=== PATIENT | male | born 1980 | race Hispanic/Latino ===

== ENCOUNTER 2024-04-24 23:21 | Emergency (ER) | payer SELFPAY ==
[~2024-04-24] VITALS: Ht 170.2 cm; Wt 77.1 kg
[2024-04-25] MEDS: SODIUM CHLORIDE 0.9% 1000ML 1,000 ML IV STA (00:03)
[2024-04-25 00:06] LABS: AMPHETAMINES SCREEN,URINE NEGATIVE (NEGATIVE); BENZODIAZEPINES SCREEN,URINE NEGATIVE (NEGATIVE); CANNABINOIDS SCREEN,URINE POSITIVE (NEGATIVE); METHADONE SCREEN, URINE NEGATIVE (NEGATIVE); OPIATES SCREEN,URINE NEGATIVE (NEGATIVE); PHENCYCLIDINE SCREEN,URINE NEGATIVE (NEGATIVE)
[2024-04-25 01:00] LABS: CREATININE, SERUM 1.15 mg/dL (0.72-1.25)
[2024-04-25 01:02] LABS: CALCIUM 10.3 mg/dL (8.4-10.2)
[2024-04-25 02:14] LABS: ANION GAP 22.5 mmol/L (8-16); CALCIUM 9.9 mg/dL (8.4-10.2); CREATININE, SERUM 1.01 mg/dL (0.72-1.25); POTASSIUM 4.5 mmol/L (3.5-5.1)
[2024-04-25 02:56] LABS: BASOPHILS % 0.5 % (0.0-1.0); EOSINOPHILS % 0.6 % (0.0-6.0); HEMATOCRIT 44.7 % (38.2-49.6); HEMOGLOBIN 15.5 g/dL (14.0-18.0); LYMPHOCYTES # (AUTO) 1.3 (1.0-3.2); LYMPHOCYTES % 20.5 % (18.0-39.1); MEAN CORPUSCULAR HEMOGLOBIN 29.3 pg (28-32); MEAN CORPUSCULAR HGB CONC 34.7 g/dL (31-35); MEAN CORPUSCULAR VOLUME 84.5 fL (81-99); MONOCYTES # (AUTO) 0.4 (0.2-0.8); MONOCYTES % 6.6 % (4.4-11.3); NEUTROPHILS # (AUTO) 4.7 (2.1-6.9); NEUTROPHILS % 71.3 % (38.7-80.0); PLATELET COUNT 134 x10e3/uL (140-360); RED BLOOD COUNT 5.29 x10e6/uL (4.3-5.7); RED CELL DISTRIBUTION WIDTH 13.3 % (11.7-14.4); WHITE BLOOD COUNT 6.54 x10e3/uL (4.8-10.8)
[2024-04-25 03:11] LABS: ALBUMIN 4.3 g/dL (3.5-5.0); ALKALINE PHOSPHATASE 108 IU/L (40-150); BILIRUBIN,TOTAL 0.4 mg/dL (0.2-1.2); TOTAL PROTEIN 11.6 g/dL (6.5-8.1)
[2024-04-25 03:56] VITALS: PULSE 89; RESP 16; TEMP 98.7; O2SAT 99
[2024-04-25 04:44] LABS: ALANINE AMINOTRANSFERASE 80 IU/L (0-55)
[2024-04-25 09:24] LABS: BASOPHILS % (MANUAL) 1 % (0-1.5); LYMPHOCYTES % (MANUAL) 20 % (19-48); MONOCYTES % (MANUAL) 6 % (3.4-9.0); NEUTROPHILS % (MANUAL) 73 % (40-74); PLATELET ESTIMATE SLIGHTLY DECREASED; PLATELET MORPHOLOGY COMMENT NORMAL
[2024-04-25 09:25] LABS: RBC MORPHOLOGY COMMENT NORMAL
== END 2024-04-25 04:03 | disposition home or self-care (01) ==
LOC: ER 23:28
DX: R44.0 Auditory hallucinations (principal); R44.1 Visual hallucinations; T40.995A Adverse effect of other psychodysleptics [hallucinogens], initial encounter; Y92.89 Other specified places as the place of occurrence of the external cause; F17.210 Nicotine dependence, cigarettes, uncomplicated
CPT/HCPCS: 36415; 80048; 80076; 80307; 80329; 85025; 93005; 99284; J7030

== ENCOUNTER 2024-06-29 05:59 | Inpatient (IN) | payer OTHER ==
[2024-06-29] VITALS (9 sets, daily range): BP systolic 140–164; BP diastolic 99–101; PULSE 74–119; RESP 16–20; TEMP 98.2–99.5; O2SAT 97–100
[~2024-06-29] VITALS: Ht 167.6 cm; Wt 72.6 kg
[2024-06-29] MEDS: SODIUM CHLORIDE 0.9% 1000ML 1,000 ML IV ONE (06:18)
[2024-06-29] MEDS: ONDANSETRON HCL INJ 2MG/ML 2ML 2 MG/ML VIAL IV STA (06:41)
[2024-06-29 06:42] LABS: ALBUMIN 4.7 g/dL (3.5-5.0); ALBUMIN/GLOBULIN RATIO 0.5 (0.8-2.0); BILIRUBIN,TOTAL 0.8 mg/dL (0.2-1.2); CALCIUM 10.4 mg/dL (8.4-10.2); CREATININE, SERUM 0.84 mg/dL (0.72-1.25); POTASSIUM 3.6 mmol/L (3.5-5.1); TOTAL PROTEIN 13.8 g/dL (6.5-8.1)
[2024-06-29] MEDS: Morphine 4mg INJECTION 4 MG/ML INJ IV ONE ×2 (06:42→09:53)
[2024-06-29 07:31] LABS: ANION GAP 17.6 mmol/L (8-16)
[2024-06-29 07:58] LABS: BILIRUBIN,URINE SMALL (NEGATIVE); CLARITY,URINE CLOUDY (CLEAR); COLOR,URINE YELLOW (YELLOW); GLUCOSE, URINE 500 (NEGATIVE); KETONES,URINE 2+ (NEGATIVE); LEUKOCYTE ESTERASE ,URINE NEGATIVE (NEGATIVE); NITRITE,URINE NEGATIVE (NEGATIVE); PH,URINE 5.5 (5 - 7); PROTEIN,URINE DIPSTICK 2+ (NEGATIVE); URINE UROBILINOGEN 0.2 mg/dL (0.2 - 1)
[2024-06-29 08:02] LABS: BASOPHILS # (AUTO) 0.1 (0.0-0.1); BASOPHILS % 0.5 % (0.0-1.0); EOSINOPHILS # (AUTO) 0.1 (0.0-0.4); EOSINOPHILS % 0.7 % (0.0-6.0); LYMPHOCYTES # (AUTO) 1.8 (1.0-3.2); LYMPHOCYTES % 16.3 % (18.0-39.1); MEAN CORPUSCULAR HEMOGLOBIN 29.3 pg (28-32); MEAN CORPUSCULAR HGB CONC 34.1 g/dL (31-35); MEAN CORPUSCULAR VOLUME 85.9 fL (81-99); MONOCYTES # (AUTO) 0.6 (0.2-0.8); MONOCYTES % 5.6 % (4.4-11.3); NEUTROPHILS # (AUTO) 8.3 (2.1-6.9); NEUTROPHILS % 76.5 % (38.7-80.0); RED BLOOD COUNT 5.94 x10e6/uL (4.3-5.7); RED CELL DISTRIBUTION WIDTH 12.9 % (11.7-14.4); WHITE BLOOD COUNT 10.88 x10e3/uL (4.8-10.8)
[2024-06-29 08:03] LABS: PLATELET COUNT 198 x10e3/uL (140-360)
[2024-06-29 08:07] LABS: HEMOGLOBIN 17.4 g/dL (14.0-18.0)
[2024-06-29 08:12] LABS: BACTERIA,URINE FEW /HPF; EPITHELIAL CELLS,URINE FEW /LPF; RBC,URINE 0-5 /HPF (0-5); WBC,URINE (MAN) 0-5 /HPF (0-5)
[2024-06-29] MEDS: ONDANSETRON HCL INJ 2MG/ML 2ML 2 MG/ML VIAL IV ONE (09:53)
[2024-06-29] MEDS: SODIUM CHLORIDE 0.9% 1000ML 1,000 ML IV SCH (09:53)
[2024-06-29] MEDS ORDERED: BENZONATATE 100 MG CAP PO PRN (11:00)
[2024-06-29] MEDS ORDERED: MELATONIN 5 MG TABLET PO PRN (11:00)
[2024-06-29] MEDS ORDERED: DEXTROSE 50% SYRINGE 50 ML IV PRN ×4 (11:00→23:30)
[2024-06-29] MEDS ORDERED: DIPHENHYDRAMINE HCL 25 MG CAP PO PRN (11:00)
[2024-06-29] MEDS ORDERED: SIMETHICONE 80 MG CHEW PO PRN (11:00)
[2024-06-29] MEDS ORDERED: DOCUSATE SODIUM 100 MG CAP PO PRN (11:00)
[2024-06-29] MEDS: LACTATED RINGER'S 1,000 ML INJ SCH (12:21)
[2024-06-29] MEDS ORDERED: IOPAMIDOL 370 MG/ML 100 ML INFUS..BTL INJ ONE (13:31)
[2024-06-29] MEDS: ACETAMINOPHEN 325 MG TAB PO PRN (13:46)
[2024-06-29] MEDS: HYDRALAZINE HCL 20 MG/ML VIAL IV PRN (13:47)
[2024-06-29] MEDS: ENOXAPARIN SOD INJ 40 MG/0.4 ML SYR SC SCH (16:45)
[2024-06-29 18:33] LABS: ANION GAP 22.7 mmol/L (8-16); CREATININE, SERUM 0.75 mg/dL (0.72-1.25); POTASSIUM 3.7 mmol/L (3.5-5.1)
[2024-06-29 18:45] LABS: CHOL/HDL RATIO 43.2 (3.9-4.7); CHOLESTEROL 475 MD/DL (0-199); HDL CHOLESTEROL 11 MG/DL (40-60)
[2024-06-29] MEDS: ONDANSETRON HCL INJ 2MG/ML 2ML 2 MG/ML VIAL IV PRN (18:58)
[2024-06-29] MEDS: Morphine 4mg INJECTION 4 MG/ML INJ IV PRN (18:58)
[2024-06-29 18:59] LABS: TRIGLYCERIDES 2591 MG/DL (0-149)
[2024-06-29] MEDS: INSULIN LISPRO 100 UNIT/1 ML 3ML VIAL SQ SCH (22:21)
[2024-06-29] MEDS: SODIUM BICARBONATE 8.4% 50 ML VIAL IV STA ×2 (23:08)
[2024-06-29] MEDS ORDERED: INSULIN REGULAR, HUMAN 100 UNIT/1 ML ONE (23:53)
[2024-06-29] MEDS: DEXTROSE 5%/LACTATED RINGERS 1,000 ML IV SCH (23:53)
[2024-06-30] VITALS (44 sets, daily range): BP systolic 127–166; BP diastolic 82–111; PULSE 88–153; RESP 5–20; TEMP 98.6–99.3; O2SAT 92–100
[2024-06-30] MEDS: SODIUM BICARBONATE 8.4% SYRING 100 ML ONE (00:02)
[2024-06-30] MEDS: INSULIN REGULAR, HUMAN 3ML VL 100 UNIT in SODIUM CHLORIDE 0.45% 100 ML 100 ML IV SCH (00:17)
[2024-06-30 00:25] LABS: AMPHETAMINES SCREEN,URINE NEGATIVE (NEGATIVE); BENZODIAZEPINES SCREEN,URINE NEGATIVE (NEGATIVE); CANNABINOIDS SCREEN,URINE POSITIVE (NEGATIVE); METHADONE SCREEN, URINE NEGATIVE (NEGATIVE); OPIATES SCREEN,URINE POSITIVE (NEGATIVE); PHENCYCLIDINE SCREEN,URINE NEGATIVE (NEGATIVE)
[2024-06-30 01:05] LABS: ANION GAP 20.7 mmol/L (8-16); CREATININE, SERUM 0.87 mg/dL (0.72-1.25); MAGNESIUM 1.7 MG/DL (1.3-2.1)
[2024-06-30 01:13] LABS: POTASSIUM 4.7 mmol/L (3.5-5.1)
[2024-06-30] MEDS: ALBUTEROL/IPRATROPIUM 3 ML NEB NEB PRN (01:30)
[2024-06-30] MEDS: POTASSIUM CHLORIDE 20 MEQ TAB CR PO STA (02:06)
[2024-06-30] MEDS: MAGNESIUM SULF 1GRAM/DEXTROSE 100 ML IV PRN (02:22)
[2024-06-30] MEDS: LIDOCAINE 4% PATCH TP PRN (07:38)
[2024-06-30] MEDS: PANTOPRAZOLE SOD 40 MG TABEC PO SCH (07:38)
[2024-06-30 07:51] LABS: ALBUMIN 3.6 g/dL (3.5-5.0); ALBUMIN/GLOBULIN RATIO 0.8 (0.8-2.0); ANION GAP 16.4 mmol/L (8-16); BILIRUBIN,TOTAL 0.9 mg/dL (0.2-1.2); CREATININE, SERUM 0.72 mg/dL (0.72-1.25); TOTAL PROTEIN 7.9 g/dL (6.5-8.1)
[2024-06-30 08:01] LABS: POTASSIUM 3.4 mmol/L (3.5-5.1)
[2024-06-30 08:10] LABS: BASOPHILS % 0.3 % (0.0-1.0); EOSINOPHILS % 0.3 % (0.0-6.0); HEMATOCRIT 47.3 % (38.2-49.6); HEMOGLOBIN 16.1 g/dL (14.0-18.0); MEAN CORPUSCULAR HEMOGLOBIN 29.9 pg (28-32); MEAN CORPUSCULAR VOLUME 87.8 fL (81-99); MONOCYTES # (AUTO) 0.4 (0.2-0.8); NEUTROPHILS # (AUTO) 8.4 (2.1-6.9); NEUTROPHILS % 84.9 % (38.7-80.0); PLATELET COUNT 142 x10e3/uL (140-360); RED BLOOD COUNT 5.39 x10e6/uL (4.3-5.7); RED CELL DISTRIBUTION WIDTH 12.9 % (11.7-14.4)
[2024-06-30] MEDS: FENOFIBRATE 145 MG TAB PO SCH (15:42)
[2024-06-30] MEDS: HYDROMORPHONE 1MG/1ML INJ IV PRN (16:30)
[2024-06-30 16:51] LABS: ANION GAP 15.4 mmol/L (8-16); BLOOD UREA NITROGEN < 5 mg/dL (7-26); CALCIUM 9.1 mg/dL (8.4-10.2); CARBON DIOXIDE 21 mmol/L (22-29); CHLORIDE 99 mmol/L (98-107); CREATININE, SERUM 0.81 mg/dL (0.72-1.25); EST GLOMERULAR FILTRATION RATE 113 ML/MIN (>=60); GLUCOSE 190 mg/dL (74-118); SODIUM 132 mmol/L (136-145)
[2024-06-30 16:57] LABS: BUN/CREATININE RATIO 6 (6-25); POTASSIUM 3.4 mmol/L (3.5-5.1)
[2024-06-30] MEDS: METOPROLOL TARTRATE INJ 1 MG/ML VIAL IV PRN (18:30)
[2024-06-30 18:41] LABS: BASOPHILS % 0.2 % (0.0-1.0); EOSINOPHILS # (AUTO) 0.1 (0.0-0.4); EOSINOPHILS % 0.5 % (0.0-6.0); HEMOGLOBIN 15.6 g/dL (14.0-18.0); LYMPHOCYTES # (AUTO) 1.2 (1.0-3.2); LYMPHOCYTES % 9.7 % (18.0-39.1); MEAN CORPUSCULAR HEMOGLOBIN 29.1 pg (28-32); MEAN CORPUSCULAR HGB CONC 33.9 g/dL (31-35); MEAN CORPUSCULAR VOLUME 85.8 fL (81-99); MONOCYTES # (AUTO) 0.6 (0.2-0.8); MONOCYTES % 4.6 % (4.4-11.3); NEUTROPHILS # (AUTO) 10.2 (2.1-6.9); NEUTROPHILS % 84.3 % (38.7-80.0); PLATELET COUNT 141 x10e3/uL (140-360); RED BLOOD COUNT 5.36 x10e6/uL (4.3-5.7); RED CELL DISTRIBUTION WIDTH 13.2 % (11.7-14.4); WHITE BLOOD COUNT 12.13 x10e3/uL (4.8-10.8)
[2024-06-30] MEDS: LABETALOL HCL 5 MG/ML 20ML VIAL IV PRN (19:47)
[2024-06-30] MEDS: ATORVASTATIN 40 MG TAB PO SCH (21:26)
[2024-07-01] VITALS (25 sets, daily range): BP systolic 134–161; BP diastolic 88–115; PULSE 82–120; RESP 9–21; TEMP 97–99.3; O2SAT 89–100
[2024-07-01 06:36] LABS: BASOPHILS % 0.2 % (0.0-1.0); EOSINOPHILS # (AUTO) 0.1 (0.0-0.4); EOSINOPHILS % 0.6 % (0.0-6.0); HEMATOCRIT 43.9 % (38.2-49.6); LYMPHOCYTES % 9.4 % (18.0-39.1); MEAN CORPUSCULAR HEMOGLOBIN 29.7 pg (28-32); MEAN CORPUSCULAR HGB CONC 34.2 g/dL (31-35); MEAN CORPUSCULAR VOLUME 86.9 fL (81-99); MONOCYTES # (AUTO) 0.6 (0.2-0.8); MONOCYTES % 5.6 % (4.4-11.3); NEUTROPHILS # (AUTO) 9.1 (2.1-6.9); NEUTROPHILS % 83.7 % (38.7-80.0); PLATELET COUNT 139 x10e3/uL (140-360); RED BLOOD COUNT 5.05 x10e6/uL (4.3-5.7); RED CELL DISTRIBUTION WIDTH 13.2 % (11.7-14.4)
[2024-07-01 06:59] LABS: ALANINE AMINOTRANSFERASE 21 IU/L (0-55); ALBUMIN 3.2 g/dL (3.5-5.0); ALBUMIN/GLOBULIN RATIO 0.8 (0.8-2.0); ALKALINE PHOSPHATASE 75 IU/L (40-150); ANION GAP 15.3 mmol/L (8-16); BILIRUBIN,TOTAL 0.9 mg/dL (0.2-1.2); BLOOD UREA NITROGEN < 5 mg/dL (7-26); BUN/CREATININE RATIO 7 (6-25); CARBON DIOXIDE 23 mmol/L (22-29); CHLORIDE 97 mmol/L (98-107); CREATININE, SERUM 0.75 mg/dL (0.72-1.25); EST GLOMERULAR FILTRATION RATE 116 ML/MIN (>=60); GLUCOSE 184 mg/dL (74-118); POTASSIUM 3.3 mmol/L (3.5-5.1); SODIUM 132 mmol/L (136-145); TOTAL PROTEIN 7.2 g/dL (6.5-8.1)
[2024-07-01] MEDS: POTASSIUM CHLORIDE 20 MEQ TAB CR PO PRN (09:03)
[2024-07-01] MEDS ORDERED: SUMATRIPTAN SUCCINATE 6 MG/0.5 ML VIAL SC ONE (13:30)
[2024-07-01] MEDS: IBUPROFEN 600 MG TAB PO PRN (13:55)
[2024-07-01 17:35] LABS: ANION GAP 13.5 mmol/L (8-16); BLOOD UREA NITROGEN < 5 mg/dL (7-26); CALCIUM 9.3 mg/dL (8.4-10.2); CARBON DIOXIDE 25 mmol/L (22-29); CHLORIDE 99 mmol/L (98-107); CREATININE, SERUM 0.79 mg/dL (0.72-1.25); EST GLOMERULAR FILTRATION RATE 114 ML/MIN (>=60); GLUCOSE 161 mg/dL (74-118); POTASSIUM 3.5 mmol/L (3.5-5.1); SODIUM 134 mmol/L (136-145)
[2024-07-01 17:36] LABS: BUN/CREATININE RATIO 6 (6-25)
[2024-07-01] MEDS: INSULIN REGULAR, HUMAN 3ML VL 100 UNIT in SODIUM CHLORIDE 0.9% 99 ML IV SCH (21:39)
[2024-07-02] VITALS (24 sets, daily range): BP systolic 121–159; BP diastolic 77–104; PULSE 81–124; RESP 7–31; TEMP 98–99.8; O2SAT 90–100
[2024-07-02] MEDS: METOCLOPRAMIDE HCL 10 MG/2ML VIAL IV ONE (01:35)
[2024-07-02] MEDS: METOCLOPRAMIDE HCL 10 MG/2ML VIAL IV SCH (05:53)
[2024-07-02 07:01] LABS: BASOPHILS % 0.4 % (0.0-1.0); EOSINOPHILS # (AUTO) 0.1 (0.0-0.4); EOSINOPHILS % 1.7 % (0.0-6.0); HEMATOCRIT 45.4 % (38.2-49.6); HEMOGLOBIN 14.7 g/dL (14.0-18.0); LYMPHOCYTES # (AUTO) 1.1 (1.0-3.2); LYMPHOCYTES % 14.6 % (18.0-39.1); MEAN CORPUSCULAR HEMOGLOBIN 28.9 pg (28-32); MEAN CORPUSCULAR HGB CONC 32.4 g/dL (31-35); MEAN CORPUSCULAR VOLUME 89.4 fL (81-99); MONOCYTES # (AUTO) 0.6 (0.2-0.8); MONOCYTES % 7.9 % (4.4-11.3); NEUTROPHILS # (AUTO) 5.6 (2.1-6.9); NEUTROPHILS % 75.1 % (38.7-80.0); PLATELET COUNT 146 x10e3/uL (140-360); RED BLOOD COUNT 5.08 x10e6/uL (4.3-5.7); RED CELL DISTRIBUTION WIDTH 12.8 % (11.7-14.4); WHITE BLOOD COUNT 7.49 x10e3/uL (4.8-10.8)
[2024-07-02 07:24] LABS: ALANINE AMINOTRANSFERASE 18 IU/L (0-55); ALBUMIN 3.2 g/dL (3.5-5.0); ALBUMIN/GLOBULIN RATIO 0.8 (0.8-2.0); ALKALINE PHOSPHATASE 73 IU/L (40-150); ANION GAP 11.5 mmol/L (8-16); BILIRUBIN,TOTAL 0.9 mg/dL (0.2-1.2); BLOOD UREA NITROGEN < 5 mg/dL (7-26); CALCIUM 9.1 mg/dL (8.4-10.2); CARBON DIOXIDE 27 mmol/L (22-29); CHLORIDE 98 mmol/L (98-107); CREATININE, SERUM 0.77 mg/dL (0.72-1.25); EST GLOMERULAR FILTRATION RATE 115 ML/MIN (>=60); GLUCOSE 184 mg/dL (74-118); POTASSIUM 3.5 mmol/L (3.5-5.1); SODIUM 133 mmol/L (136-145); TOTAL PROTEIN 7.1 g/dL (6.5-8.1)
[2024-07-02 07:26] LABS: BUN/CREATININE RATIO 6 (6-25)
[2024-07-02] MEDS ORDERED: DEXTROSE 50% SYRINGE 50 ML IV PRN (12:15)
[2024-07-02] MEDS: INSULIN REGULAR, HUMAN 100 UNIT/1 ML SQ SCH (13:05)
[2024-07-02] MEDS: INSULIN GLARGINE 100 UNITS/ML VIAL SQ SCH (13:08)
[2024-07-02] MEDS ORDERED: HYDROMORPHONE 1MG/1ML INJ IV PRN (15:00)
[2024-07-02] MEDS: SODIUM CHLORIDE 0.9% 100 ML ONE (16:25)
[2024-07-03] VITALS (9 sets, daily range): BP systolic 138–160; BP diastolic 98–112; PULSE 93–116; RESP 18–26; TEMP 97.9–98.8; O2SAT 95–99
[2024-07-03 06:33] LABS: BASOPHILS % 0.4 % (0.0-1.0); EOSINOPHILS # (AUTO) 0.1 (0.0-0.4); EOSINOPHILS % 1.7 % (0.0-6.0); HEMATOCRIT 48.9 % (38.2-49.6); HEMOGLOBIN 15.9 g/dL (14.0-18.0); LYMPHOCYTES # (AUTO) 1.5 (1.0-3.2); LYMPHOCYTES % 21.1 % (18.0-39.1); MEAN CORPUSCULAR HEMOGLOBIN 28.9 pg (28-32); MEAN CORPUSCULAR HGB CONC 32.5 g/dL (31-35); MEAN CORPUSCULAR VOLUME 88.7 fL (81-99); MONOCYTES # (AUTO) 0.6 (0.2-0.8); MONOCYTES % 8.2 % (4.4-11.3); NEUTROPHILS # (AUTO) 4.7 (2.1-6.9); NEUTROPHILS % 68.3 % (38.7-80.0); PLATELET COUNT 174 x10e3/uL (140-360); RED BLOOD COUNT 5.51 x10e6/uL (4.3-5.7); RED CELL DISTRIBUTION WIDTH 12.9 % (11.7-14.4); WHITE BLOOD COUNT 6.87 x10e3/uL (4.8-10.8)
[2024-07-03 07:11] LABS: ANION GAP 14.7 mmol/L (8-16); CREATININE, SERUM 0.94 mg/dL (0.72-1.25); POTASSIUM 3.7 mmol/L (3.5-5.1)
[2024-07-03] MEDS ORDERED: LISINOPRIL20 MG PO (12:31)
[2024-07-03] MEDS ORDERED: METFORMIN HCL500 MG PO (12:31)
== END 2024-07-03 15:09 | disposition home or self-care (01) | DRG 438 ==
LOC: ER 06:10 → ERHOLD 09:36 → MED/SURG3 13:11 → OBSVTOIN 17:48 → ICU 22:45 → MED/SURG3 07-03 09:13
PROVIDERS: ADMIT Internal Medicine; ATTEND Internal Medicine
DX: K85.80 Other acute pancreatitis without necrosis or infection (principal); E11.10 Type 2 diabetes mellitus with ketoacidosis without coma; E11.65 Type 2 diabetes mellitus with hyperglycemia; Z79.84 Long term (current) use of oral hypoglycemic drugs; Z79.4 Long term (current) use of insulin; E87.8 Other disorders of electrolyte and fluid balance, not elsewhere classified; E78.1 Pure hyperglyceridemia; I10 Essential (primary) hypertension; E78.5 Hyperlipidemia, unspecified; K76.0 Fatty (change of) liver, not elsewhere classified; F10.10 Alcohol abuse, uncomplicated; F11.90 Opioid use, unspecified, uncomplicated; F12.90 Cannabis use, unspecified, uncomplicated; F17.200 Nicotine dependence, unspecified, uncomplicated; K80.20 Calculus of gallbladder without cholecystitis without obstruction; Z91.148 Patient's other noncompliance with medication regimen for other reason; Z79.899 Other long term (current) drug therapy
CPT/HCPCS: 36415; 71045; 74177; 76705; 80048; 80053; 80061; 80307; 81001; 82010; 82948; 83036; 83690; 83735; 84443; 84478; 85025; 93005; 94799; 99252; 99284; J0360; J1171; J1650; J1815; J2185; J2270; J2405; J2470; J2765; J3030; J3475; J7030; J7050; Q9967